=== PATIENT | female | born 1995 | race Two or more races ===

== ENCOUNTER 2025-04-04 03:37 | Inpatient (IN) | payer OTHER ==
[~2025-04-04] VITALS: Ht 154.9 cm; Wt 61.5 kg
[2025-04-04] VITALS (16 sets, daily range): BP systolic 94–136; BP diastolic 53–74; O2SAT 98
[2025-04-04] MEDS ORDERED: PRENTAB9 PO (03:56)
[2025-04-04] MEDS ORDERED: HOME MED LIST COMPLETE! XX SCH (04:00)
[2025-04-04] MEDS: LR 1,000 ML IV SCH (04:43)
[2025-04-04] MEDS: PENICILLIN G POTASSIUM 5 MU IV 5 MU in DEXTROSE 5% (D5W) MINI-BAG PLU 100 ML IV STA (04:44)
[2025-04-04 05:10] LABS: PLATELET COUNT, AUTOMATED 287 10^3/uL (150-450)
[2025-04-04 06:46] LABS: HIV 1&2 SCREEN NEGATIVE (NEGATIVE)
[2025-04-04 06:53] LABS: HEPATITIS C VIRUS ABY INDEX 0.05 INDEX (<0.8)
[2025-04-04] MEDS: PEN G POT 3,000,000 UNIT/50 ML 3,000,000 UNIT in IV 1 EA IV SCH (09:10)
[2025-04-04] MEDS: ONDANSETRON 4MG 2ML VIAL IV ONE (11:29)
[2025-04-04] MEDS ORDERED: OXYTOCIN DRIP 30 UNITS in IV 1 EA IV SCH (11:30)
[2025-04-04] MEDS ORDERED: LIDOCAINE 1% MDV 20 ML VIAL As Ordered ONE (17:02)
[2025-04-04] MEDS ORDERED: RHOGAM 300MCG (1500IU) INJ IM SCH (17:50)
[2025-04-04] MEDS ORDERED: ACETAMINOPHEN 325 MG TAB PO PRN (17:50)
[2025-04-04] MEDS ORDERED: ACETAMINOPHEN 500 MG TAB PO PRN (17:50)
[2025-04-04] MEDS ORDERED: CALCIUM CARBONATE 500 MG CHEW U/D PO PRN (17:50)
[2025-04-04] MEDS ORDERED: ANUSOL HC CREAM 30 GM TOP PRN (17:50)
[2025-04-04] MEDS ORDERED: IBUPROFEN 600 MG TAB PO PRN (17:50)
[2025-04-04] MEDS ORDERED: DOCUSATE SODIUM 100 MG CAPSULE PO PRN (17:50)
[2025-04-04] MEDS: OXYTOCIN DRIP 30 UNITS in IV 1 EA IV SCH (18:33)
[2025-04-04] MEDS: METHYLERGONOVINE MALEATE 0.2 MG/ML 1 ML VIAL IM PRN (18:34)
[2025-04-04 19:27] LABS: PLATELET COUNT, AUTOMATED 283 10^3/uL (150-450)
[2025-04-04 19:46] LABS: INR 0.89
[2025-04-05 06:12] VITALS: BP 124/75; O2SAT 98
[2025-04-05 06:57] LABS: PLATELET COUNT, AUTOMATED 284 10^3/uL (150-450)
[2025-04-05 08:41] VITALS: BP 124/75; TEMP 97.9; O2SAT 98
[2025-04-05] MEDS: PRENATAL VITAMINS CHEWABLE TABLET PO SCH (08:55)
[2025-04-05] MEDS: IBUPROFEN 800 MG TAB PO PRN (08:56)
[2025-04-05 17:30] VITALS: BP 112/67; O2SAT 98
[2025-04-06 06:09] VITALS: BP 101/73; O2SAT 100
[2025-04-06] MEDS ORDERED: MEASLES,MUMPS,RUBELLA VACCINE INJ (MMR-II) SC.IMMUN ONE (09:00)
[2025-04-06] MEDS: DIBUCAINE 1% OINTMENT 30 GM TOP PRN (09:21)
[2025-04-06] MEDS ORDERED: ACET-683 PO (11:35)
[2025-04-06] MEDS ORDERED: IBUP80TA PO (11:35)
== END 2025-04-06 17:15 | disposition home or self-care (01) | DRG 806 ==
LOC: M LDO 03:37 → M LDI 04:17 → M OBS 20:18
PROVIDERS: ADMIT Obstetrics & Gynecology; ATTEND Obstetrics & Gynecology
PROC: 10E0XZZ Delivery of Products of Conception, External Approach (ICD-10-PCS; principal; 2025-04-04)
PROC: 0KQM0ZZ Repair Perineum Muscle, Open Approach (ICD-10-PCS; 2025-04-04)
DX: O42.013 Preterm premature rupture of membranes, onset of labor within 24 hours of rupture, third trimester (principal); Z37.0 Single live birth; O72.1 Other immediate postpartum hemorrhage; Z3A.36 36 weeks gestation of pregnancy; O70.1 Second degree perineal laceration during delivery

== ENCOUNTER → 2025-05-17 | Outpatient (REF) | payer OTHER ==
[~2025-05-17] MED LIST: ACET-683 PO; IBUP80TA PO; PRENTAB9 PO
[2025-05-17 16:02] LABS: APPEARANCE, URINE CLEAR (CLEAR); BACTERIA, URINE AUTO NEGATIVE (NEGATIVE); BILIRUBIN, URINE AUTO NEGATIVE (NEGATIVE); BLOOD, URINE BLOOD NEGATIVE (NEGATIVE); GLUCOSE, URINE (UA) AUTO NEGATIVE (NEGATIVE); KETONE, URINE AUTO NEGATIVE (NEGATIVE); LEUKOCYTE ESTERASE, URINE AUTO NEGATIVE (NEGATIVE); NITRITE, URINE AUTO NEGATIVE (NEGATIVE); PROTEIN, URINE AUTO NEGATIVE (NEGATIVE); RBC, URINE AUTO 0 /HPF (0-3); SPECIFIC GRAVITY URINE AUTO 1.005 (1.002-1.035); SQUAMOUS EPITHELIAL CELL UR AU 2 /HPF (0-6); UROBILINOGEN, URINE AUTO 0.2 mg/dL (0.0-2.0); WBC, URINE AUTO 1 /HPF (0-3)
== END ==
LOC: M SFHCWAGY 15:21
PROVIDERS: ATTEND Obstetrics & Gynecology
DX: R30.0 Dysuria (principal)